=== PATIENT | male | born 1960 | race African-American/Black ===

== ENCOUNTER 2020-04-01 09:38 | Inpatient (IN) | payer MEDICAID ==
[~2020-04-01] VITALS: Ht 180.3 cm; Wt 86.6 kg
[2020-04-01] MEDS ORDERED: SODIUM CHLORIDE 0.9% 1,000 ML IV ONE (10:03)
[2020-04-01 10:26] LABS: BASOPHILS % 1.1 % (0.0-2.0); HEMATOCRIT. 42.4 % (42.0-52.0); HEMOGLOBIN. 14.7 g/dL (14.0-18.0); LYMPHOCYTES % 30.2 % (20.0-50.0); MEAN CORPUSCULAR HEMOGLOBIN 31.3 pg (28.0-32.0); MEAN CORPUSCULAR VOLUME 90.5 fL (80.0-94.0); MEAN PLATELET VOLUME 6.9 fl (7.4-10.4); MONOCYTES % 9.3 % (2.0-8.0); NEUTROPHILS % 50.4 % (40.0-76.0); PLATELET 263 x1000/uL (130-400); RED BLOOD CELL COUNT 4.69 mill/uL (4.7-6.1); RED CELL DISTRIBUTION WIDTH 13.6 % (11.6-14.6)
[2020-04-01 10:34] LABS: CHLORIDE 104 mEq/L (98-107)
[2020-04-01] MEDS ORDERED: AZITHROMYCIN 500 MG in DEXT 5% WATER 250 ML IV SCH (11:00)
[2020-04-01] MEDS ORDERED: ACETAMINOPHEN 325MG TABLET PO PRN (14:30)
[2020-04-01] MEDS ORDERED: BENZONATATE 100MG CAPSULE PO PRN (14:30)
[2020-04-01] MEDS ORDERED: LEVOFLOXACIN 500MG PREMIX 100 ML IV NR (15:15)
[2020-04-01 15:47] VITALS: BP 103/61
[2020-04-01 15:50] VITALS: BP 103/61
[2020-04-01 17:02] LABS: *AMPHETAMINES SCREEN URINE NEGATIVE (NEGATIVE); *BARBITURATES SCREEN URINE NEGATIVE (NEGATIVE)
[2020-04-01 17:03] LABS: *BENZODIAZEPINES SCREEN URINE NEGATIVE (NEGATIVE); *COCAINE SCREEN URINE NEGATIVE (NEGATIVE); METHADONE URINE SCREEN NEGATIVE (NEGATIVE); OPIATES URINE SCREEN NEGATIVE (NEGATIVE); PHENCYCLIDINE URINE SCREEN NEGATIVE (NEGATIVE)
[2020-04-01 17:04] LABS: CANNABINOID URINE SCREEN NEGATIVE (NEGATIVE)
[2020-04-01 20:00] VITALS: BP 107/70
[2020-04-01] MEDS: ENOXAPARIN 40MG/0.4ML SYR SUBCUT SCH (20:55)
[2020-04-01] MEDS: CEFTRIAXONE 1 G PREMIX 50 ML IV SCH (22:04)
[2020-04-02] VITALS: BP 125/65
[2020-04-02] MEDS: MORPHINE SULFATE 2 MG/ML CPJ (NOT FOR IM USE) IV PRN ×2 (00:18→12:32)
[2020-04-02 06:54] VITALS: BP 109/45
[2020-04-02 08:00] VITALS: BP 105/49
[2020-04-02] MEDS: AZITHROMYCIN 250 MG TABLET PO SCH (08:49)
[2020-04-02] MEDS ORDERED: AZITHROMYCIN 500 MG TABLET PO NR (09:00)
[2020-04-02] MEDS ORDERED: LEVOFLOXACIN 500MG PREMIX 100 ML IV SCH (09:00)
[2020-04-02 12:00] VITALS: BP 97/56
[2020-04-02] MEDS: ALBUTEROL 6.7GM HFA INHALER ORI SCH ×2 (12:00→18:00)
[2020-04-02] MEDS: FLUTICASONE FUROATE 100 1 INH/CAP ORI SCH ×2 (13:39→20:22)
[2020-04-02 16:00] VITALS: BP 105/62
[2020-04-02 20:00] VITALS: BP 95/54
[2020-04-02] MEDS: CEFTRIAXONE 1 G PREMIX 50 ML IV SCH (20:22)
[2020-04-02] MEDS: ENOXAPARIN 40MG/0.4ML SYR SUBCUT SCH (20:22)
[2020-04-03] VITALS (7 sets, daily range): BP systolic 92–109; BP diastolic 54–65
[2020-04-03] MEDS: ALBUTEROL 6.7GM HFA INHALER ORI SCH ×2 (00:01→03:15)
[2020-04-03] MEDS: AZITHROMYCIN 250 MG TABLET PO SCH (08:29)
[2020-04-03] MEDS: MORPHINE SULFATE 2 MG/ML CPJ (NOT FOR IM USE) IV PRN (08:36)
[2020-04-03] MEDS ORDERED: LEVO750T21 MT (10:31)
[2020-04-03] MEDS ORDERED: ALBU18HF2 IH (10:31)
[2020-04-03] MEDS ORDERED: GUAIFENESIN 600MG ER TABLET PO SCH (11:00)
[2020-04-03] MEDS ORDERED: IPRATROPIUM/ALBUTEROL 0.5-3(2.5)MG/3ML NEB HHN SCH (12:00)
[2020-04-03] MEDS: BENZONATATE 100MG CAPSULE PO SCH ×2 (15:07→21:01)
[2020-04-03] MEDS: METHYLPREDNISOLONE SOD SUCC 40 MG/ML VIAL IV SCH (17:36)
[2020-04-03] MEDS: ENOXAPARIN 40MG/0.4ML SYR SUBCUT SCH (20:42)
[2020-04-03] MEDS: CEFTRIAXONE 1 G PREMIX 50 ML IV SCH (20:42)
[2020-04-03] MEDS ORDERED: IPRATROPIUM/ALBUTEROL 0.5-3(2.5)MG/3ML NEB HHN PRN (20:45)
[2020-04-03] MEDS: IPRATROPIUM/ALBUTEROL 0.5-3(2.5)MG/3ML NEB HHN SCH (21:05)
[2020-04-04] VITALS: BP 100/52
[2020-04-04] MEDS: IPRATROPIUM/ALBUTEROL 0.5-3(2.5)MG/3ML NEB HHN SCH ×6 (00:47→20:05)
[2020-04-04 04:00] VITALS: BP 108/57
[2020-04-04] MEDS: BENZONATATE 100MG CAPSULE PO SCH (05:27)
[2020-04-04 08:00] VITALS: BP 106/59
[2020-04-04] MEDS: AZITHROMYCIN 250 MG TABLET PO SCH (08:35)
[2020-04-04] MEDS: FLUTICASONE FUROATE 100 1 INH/CAP ORI SCH ×2 (08:36→21:56)
[2020-04-04] MEDS: METHYLPREDNISOLONE SOD SUCC 40 MG/ML VIAL IV SCH ×2 (09:38→17:57)
[2020-04-04 12:00] VITALS: BP 102/61
[2020-04-04 13:14] LABS: BG BASE EXCESS 2.8 mmol/L (-2.0-2.0); BG CARBOXYHEMOGLOBIN 0.6 % (0.5-1.5); BG DEOXYHEMOGLOBIN 7.2 % (0.0-5.0); BG FRACTION INSPIRED OXYGEN 21; BG HCO3 ACT 28.5 mmol/L (22.0-26.0); BG METHEMOGLOBIN 0.2 % (0.0-1.5); BG OXYGEN SATURATION 92.7 % (92.0-98.5); BG PCO2 48.1 mmHg (35.0-45.0); BG PH 7.391 (7.350-7.450); BG PO2 62.8 mmHg (75.0-100.0); BG SAMPLE SITE RIGHT BRACHIAL; BG VENT MODE ROOM AIR
[2020-04-04 16:00] VITALS: BP 110/73
[2020-04-04] MEDS: GUAIFENESIN-DM 200MG-20MG/10ML UDC PO SCH (21:53)
[2020-04-04] MEDS: CEFTRIAXONE 1,000 MG in DEXTROSE 5% WATER 50 ML IV SCH (21:55)
[2020-04-04] MEDS: ENOXAPARIN 40MG/0.4ML SYR SUBCUT SCH (21:55)
[2020-04-05] MEDS: IPRATROPIUM/ALBUTEROL 0.5-3(2.5)MG/3ML NEB HHN SCH ×5 (00:22→21:18)
[2020-04-05 08:00] VITALS: BP 118/83
[2020-04-05] MEDS: AZITHROMYCIN 250 MG TABLET PO SCH (09:18)
[2020-04-05] MEDS: FLUTICASONE FUROATE 100 1 INH/CAP ORI SCH ×2 (09:19→21:23)
[2020-04-05] MEDS: METHYLPREDNISOLONE SOD SUCC 40 MG/ML VIAL IV SCH (09:19)
[2020-04-05] MEDS: MORPHINE SULFATE 2 MG/ML CPJ (NOT FOR IM USE) IV PRN (09:52)
[2020-04-05 12:00] VITALS: BP 133/61
[2020-04-05] MEDS: BENZONATATE 100MG CAPSULE PO PRN ×2 (12:22→20:48)
[2020-04-05 16:00] VITALS: BP 116/82
[2020-04-05] MEDS: THROAT LOZENGES-BENZOCAINE/MENTH/CETYLPYRD CL LOZENGES MM PRN ×2 (17:26→22:26)
[2020-04-05 20:00] VITALS: BP 105/60
[2020-04-05] MEDS: CEFTRIAXONE 1,000 MG in DEXTROSE 5% WATER 50 ML IV SCH (20:43)
[2020-04-05] MEDS: GUAIFENESIN-DM 200MG-20MG/10ML UDC PO SCH (20:45)
[2020-04-05] MEDS: ENOXAPARIN 40MG/0.4ML SYR SUBCUT SCH (20:48)
[2020-04-06] VITALS: BP 114/64
[2020-04-06] MEDS: IPRATROPIUM/ALBUTEROL 0.5-3(2.5)MG/3ML NEB HHN SCH ×4 (00:37→12:51)
[2020-04-06 04:00] VITALS: BP 98/52
[2020-04-06] MEDS: THROAT LOZENGES-BENZOCAINE/MENTH/CETYLPYRD CL LOZENGES MM PRN (05:01)
[2020-04-06 08:00] VITALS: BP 93/52
[2020-04-06] MEDS ORDERED: METHYLPREDNISOLONE SOD SUCC 40 MG/ML VIAL IV SCH (09:00)
[2020-04-06] MEDS: FLUTICASONE FUROATE 100 1 INH/CAP ORI SCH (09:49)
[2020-04-06 12:00] VITALS: BP 100/56
[2020-04-06] MEDS ORDERED: GUAI600T26 MT (12:06)
[2020-04-06] MEDS ORDERED: P20 MT (12:06)
[2020-04-06] MEDS ORDERED: BENZ-16 MT (12:06)
[2020-04-06 13:10] VITALS: BP 100/56
[2020-04-06] MEDS ORDERED: IPRATROPIUM/ALBUTEROL 0.5-3(2.5)MG/3ML NEB HHN SCH (18:00)
[2020-04-07] MEDS ORDERED: PREDNISONE 20MG TABLET PO SCH (09:00)
== END 2020-04-06 18:30 | disposition home or self-care (01) | DRG 720 ==
LOC: ER 09:53 → EDBEDREQ 13:17 → ENRESERV 14:35 → 7EST 15:47 → 5WST 04-03 05:00
PROVIDERS: ADMIT Internal Medicine; ATTEND Internal Medicine
DX: A41.9 Sepsis, unspecified organism (principal); J96.00 Acute respiratory failure, unspecified whether with hypoxia or hypercapnia; J18.0 Bronchopneumonia, unspecified organism; E44.1 Mild protein-calorie malnutrition; J44.0 Chronic obstructive pulmonary disease with (acute) lower respiratory infection; D72.1 Eosinophilia; Z20.828 Contact with and (suspected) exposure to other viral communicable diseases; J44.1 Chronic obstructive pulmonary disease with (acute) exacerbation; Z87.891 Personal history of nicotine dependence; Z68.26 Body mass index [BMI] 26.0-26.9, adult; Z88.0 Allergy status to penicillin; Z79.2 Long term (current) use of antibiotics; Z79.899 Other long term (current) drug therapy
CPT/HCPCS: 36415; 36600; 71045; 80053; 80305; 82375; 82728; 82805; 83615; 83880; 84484; 85025; 85379; 87635; 87804; 93005; 99285; J0456; J0696; J1650; J1956; J2270; J2920; J7030; J7060

== ENCOUNTER 2020-04-19 15:12 | Inpatient (IN) | payer MEDICAID ==
[~2020-04-19] VITALS: Ht 172.7 cm; Wt 68.9 kg
[~2020-04-19 15:12] MED LIST: ALBU18HF2 IH; BENZ-16 MT; GUAI600T26 MT; LEVO750T21 MT; P20 MT
[2020-04-19] MEDS ORDERED: ALBUTEROL (0.083%) 2.5MG/3ML NEB HHN STA (15:53)
[2020-04-19] MEDS ORDERED: METHYLPREDNISOLONE SOD SUCC 125 MG/2 ML VIAL IV STA (15:53)
[2020-04-19] MEDS ORDERED: IPRATROPIUM BROMIDE (0.02%) 0.5MG/2.5ML NEB HHN STA (15:53)
[2020-04-19 16:06] LABS: BASOPHILS % 0.4 % (0.0-2.0); CHLORIDE 105 mEq/L (98-107); EOSINOPHILS % 9.5 % (0.0-5.0); HEMATOCRIT. 41.8 % (42.0-52.0); HEMOGLOBIN. 14.6 g/dL (14.0-18.0); LYMPHOCYTES % 51.7 % (20.0-50.0); MEAN CORPUSCULAR HEMOGLOBIN 31.8 pg (28.0-32.0); MEAN CORPUSCULAR VOLUME 91.1 fL (80.0-94.0); MEAN PLATELET VOLUME 7.1 fl (7.4-10.4); MONOCYTES % 10.2 % (2.0-8.0); NEUTROPHILS % 28.2 % (40.0-76.0); PLATELET 303 x1000/uL (130-400); RED BLOOD CELL COUNT 4.59 mill/uL (4.7-6.1); RED CELL DISTRIBUTION WIDTH 13.8 % (11.6-14.6)
[2020-04-19] MEDS ORDERED: ONDANSETRON HCL 4MG/2ML INJ IV STA ×2 (16:40→17:17)
[2020-04-19] MEDS ORDERED: MORPHINE SULFATE 4 MG/ML CPJ (NOT FOR IM USE) IV STA ×2 (16:40→17:17)
[2020-04-19] MEDS ORDERED: LORAZEPAM 0.5MG TABLET PO ONE (16:45)
[2020-04-19] MEDS ORDERED: MIDAZOLAM HCL 2 MG/2 ML VIAL IV ONE (17:00)
[2020-04-19] MEDS ORDERED: FENTANYL CITRATE/PF 50MCG/ML 2ML VIAL IV ONE (19:45)
[2020-04-19] MEDS ORDERED: ONDANSETRON HCL 4MG/2ML INJ IV PRN (20:45)
[2020-04-19] MEDS ORDERED: ACETAMINOPHEN 325MG TABLET PO PRN (20:45)
[2020-04-19] MEDS ORDERED: LEVOFLOXACIN 750MG PREMIX 150 ML IV SCH (22:00)
[2020-04-19] MEDS: HYDROCODONE/ACETAMINOPHEN 5/325MG TABLET PO PRN (23:51)
[2020-04-20] VITALS (13 sets, daily range): BP systolic 109–136; BP diastolic 52–83
[2020-04-20] MEDS ORDERED: LEVOFLOXACIN 750MG PREMIX 150 ML IV SCH
[2020-04-20] MEDS: IPRATROPIUM/ALBUTEROL 0.5-3(2.5)MG/3ML NEB HHN SCH ×4 (02:14→20:37)
[2020-04-20] MEDS: BENZONATATE 100MG CAPSULE PO PRN (05:34)
[2020-04-20] MEDS: HYDROCODONE/ACETAMINOPHEN 5/325MG TABLET PO PRN ×3 (06:06→20:35)
[2020-04-20] MEDS: THROAT LOZENGES-BENZOCAINE/MENTH/CETYLPYRD CL LOZENGES MM PRN ×3 (09:11→20:13)
[2020-04-20 10:15] LABS: BG BASE EXCESS 0.9 mmol/L (-2.0-2.0); BG CARBOXYHEMOGLOBIN 0.7 % (0.5-1.5); BG DEOXYHEMOGLOBIN 6.2 % (0.0-5.0); BG FRACTION INSPIRED OXYGEN 28; BG HCO3 ACT 27.4 mmol/L (22.0-26.0); BG METHEMOGLOBIN 0.3 % (0.0-1.5); BG OXYGEN SATURATION 93.7 % (92.0-98.5); BG OXYHEMOGLOBIN 92.8 % (94.0-97.0); BG PCO2 51.1 mmHg (35.0-45.0); BG PH 7.347 (7.350-7.450); BG PO2 70.7 mmHg (75.0-100.0); BG SAMPLE SITE RIGHT BRACHIAL; BG TOTAL HEMOGLOBIN 14.5 g/dL (12.0-18.0); BG VENT MODE NASAL CANNULA
[2020-04-20] MEDS: METHYLPREDNISOLONE SOD SUCC 40 MG/ML VIAL IV SCH ×2 (13:49→23:02)
[2020-04-21] VITALS (12 sets, daily range): BP systolic 100–149; BP diastolic 60–95
[2020-04-21] MEDS: THROAT LOZENGES-BENZOCAINE/MENTH/CETYLPYRD CL LOZENGES MM PRN ×2 (00:17→14:16)
[2020-04-21] MEDS: BENZONATATE 100MG CAPSULE PO PRN ×2 (00:17→14:37)
[2020-04-21] MEDS: HYDROCODONE/ACETAMINOPHEN 5/325MG TABLET PO PRN ×3 (00:46→22:44)
[2020-04-21] MEDS: LEVOFLOXACIN 750MG PREMIX 150 ML IV SCH (01:00)
[2020-04-21] MEDS: ZOLPIDEM TARTRATE 5MG TABLET PO PRN ×2 (01:03→23:55)
[2020-04-21] MEDS: IPRATROPIUM/ALBUTEROL 0.5-3(2.5)MG/3ML NEB HHN SCH ×3 (02:08→22:00)
[2020-04-21] MEDS: METHYLPREDNISOLONE SOD SUCC 40 MG/ML VIAL IV SCH ×3 (06:13→21:52)
[2020-04-21 15:24] LABS: CHLORIDE 98 mEq/L (98-107)
[2020-04-21 15:28] LABS: BASOPHILS % 0.1 % (0.0-2.0); HEMATOCRIT. 40.7 % (42.0-52.0); HEMOGLOBIN. 13.7 g/dL (14.0-18.0); LYMPHOCYTES % 8.8 % (20.0-50.0); MEAN CORPUSCULAR HEMOGLOBIN 31.1 pg (28.0-32.0); MEAN CORPUSCULAR VOLUME 92.6 fL (80.0-94.0); MEAN PLATELET VOLUME 7.1 fl (7.4-10.4); MONOCYTES % 4.5 % (2.0-8.0); NEUTROPHILS % 86.6 % (40.0-76.0); PLATELET 276 x1000/uL (130-400); RED CELL DISTRIBUTION WIDTH 13.6 % (11.6-14.6)
[2020-04-22] VITALS (14 sets, daily range): BP systolic 111–167; BP diastolic 59–117
[2020-04-22] MEDS: LEVOFLOXACIN 750MG PREMIX 150 ML IV SCH (01:12)
[2020-04-22] MEDS: IPRATROPIUM/ALBUTEROL 0.5-3(2.5)MG/3ML NEB HHN SCH ×3 (04:59→20:10)
[2020-04-22] MEDS: METHYLPREDNISOLONE SOD SUCC 40 MG/ML VIAL IV SCH ×3 (05:42→21:56)
[2020-04-22] MEDS: HYDROCODONE/ACETAMINOPHEN 5/325MG TABLET PO PRN (05:43)
[2020-04-22] MEDS: THROAT LOZENGES-BENZOCAINE/MENTH/CETYLPYRD CL LOZENGES MM PRN ×2 (07:55→14:21)
[2020-04-22] MEDS: BENZONATATE 100MG CAPSULE PO PRN (14:21)
[2020-04-22] MEDS: KETOROLAC 30MG/ML VIAL IV PRN (16:47)
[2020-04-23] VITALS (12 sets, daily range): BP systolic 105–142; BP diastolic 67–89
[2020-04-23] MEDS: THROAT LOZENGES-BENZOCAINE/MENTH/CETYLPYRD CL LOZENGES MM PRN ×2 (00:04→06:25)
[2020-04-23] MEDS: IPRATROPIUM/ALBUTEROL 0.5-3(2.5)MG/3ML NEB HHN SCH ×4 (01:00→14:34)
[2020-04-23] MEDS: LEVOFLOXACIN 750MG PREMIX 150 ML IV SCH (01:31)
[2020-04-23] MEDS: KETOROLAC 30MG/ML VIAL IV PRN (02:53)
[2020-04-23] MEDS: METHYLPREDNISOLONE SOD SUCC 40 MG/ML VIAL IV SCH (06:25)
[2020-04-23] MEDS: GUAIFENESIN-DM 200MG-20MG/10ML UDC PO SCH ×3 (12:23→23:42)
[2020-04-23] MEDS: HYDROCODONE/ACETAMINOPHEN 5/325MG TABLET PO PRN (18:47)
[2020-04-24] VITALS (38 sets, daily range): BP systolic 65–136; BP diastolic 42–106
[2020-04-24] MEDS: LEVOFLOXACIN 750MG PREMIX 150 ML IV SCH (01:03)
[2020-04-24] MEDS: GUAIFENESIN-DM 200MG-20MG/10ML UDC PO SCH ×4 (05:44→23:13)
[2020-04-24 06:19] LABS: INR 1.1; PROTHROMBIN TIME 11.6 sec (9.6-11.0)
[2020-04-24 06:31] LABS: BASOPHILS % 0.1 % (0.0-2.0); EOSINOPHILS % 0.2 % (0.0-5.0); HEMOGLOBIN. 13.5 g/dL (14.0-18.0); LYMPHOCYTES % 32.8 % (20.0-50.0); MEAN CORPUSCULAR HEMOGLOBIN 30.8 pg (28.0-32.0); MEAN CORPUSCULAR VOLUME 91.5 fL (80.0-94.0); MEAN PLATELET VOLUME 6.7 fl (7.4-10.4); MONOCYTES % 9.2 % (2.0-8.0); NEUTROPHILS % 57.7 % (40.0-76.0); PLATELET 257 x1000/uL (130-400); RED BLOOD CELL COUNT 4.37 mill/uL (4.7-6.1); RED CELL DISTRIBUTION WIDTH 13.6 % (11.6-14.6)
[2020-04-24 06:35] LABS: CHLORIDE 99 mEq/L (98-107)
[2020-04-24] MEDS: IPRATROPIUM/ALBUTEROL 0.5-3(2.5)MG/3ML NEB HHN SCH ×3 (07:48→20:18)
[2020-04-24] MEDS: METHYLPREDNISOLONE SOD SUCC 40 MG/ML VIAL IV SCH (08:41)
[2020-04-24] MEDS ORDERED: TALC 3 GM VIAL IX SCH ×2 (09:15→09:30)
[2020-04-24] MEDS ORDERED: LIDOCAINE HCL 2% JELLY 5ML ONE (09:24)
[2020-04-24] MEDS ORDERED: TETRACAINE/BENZOCAINE/BUTAMBEN 20 GM SPRAY MM ONE (09:24)
[2020-04-24] MEDS ORDERED: BUPIVACAINE/EPINEPH/PF 0.25%/0.0005 10ML ONE (09:25)
[2020-04-24] MEDS ORDERED: SKIN ADHESIVE 0.7 GM EA TOP ONE (09:25)
[2020-04-24] MEDS ORDERED: LIDOCAINE HCL/EPINEPHRINE 1%-EPI 1:100,000 20 ML VIAL ONE (09:26)
[2020-04-24] MEDS ORDERED: BACITRACIN 15GM TUBE TOP ONE (09:26)
[2020-04-24] MEDS ORDERED: BACITRACIN 50,000 UNITS/VIAL ONE (09:26)
[2020-04-24] MEDS ORDERED: NORMAL SALINE 0.9% 10 ML SYR ONE (09:26)
[2020-04-24] MEDS ORDERED: MIDAZOLAM HCL 2 MG/2 ML VIAL ONE (10:28)
[2020-04-24] MEDS ORDERED: PROPOFOL 200MG/20ML VIAL IV ONE (10:28)
[2020-04-24] MEDS ORDERED: FENTANYL CITRATE/PF 50MCG/ML 2ML VIAL ONE (10:28)
[2020-04-24] MEDS ORDERED: ROCURONIUM BROMIDE 10MG/ML VIAL 5ML IV ONE ×2 (10:31→13:35)
[2020-04-24] MEDS ORDERED: NEOSTIGMINE METHYLSULFATE 1MG/ML 10 ML VIAL ONE (13:36)
[2020-04-24] MEDS ORDERED: GLYCOPYRROLATE 0.2 MG/ML 2ML VIAL ONE (13:36)
[2020-04-24] MEDS ORDERED: PHENYLEPHRINE HCL 10 MG/ML 1ML (IV VIAL) IV ONE (13:36)
[2020-04-24] MEDS ORDERED: ONDANSETRON HCL 4MG/2ML INJ ONE (13:39)
[2020-04-24] MEDS ORDERED: KETOROLAC 30MG/ML VIAL ONE (13:39)
[2020-04-24] MEDS ORDERED: METOCLOPRAMIDE HCL 10MG/2ML VIAL ONE (13:39)
[2020-04-24] MEDS ORDERED: SODIUM CHLORIDE 0.9% 500 ML IV PRN (13:48)
[2020-04-24] MEDS ORDERED: OXYCODONE HCL/ACETAMINOPHEN 5/325MG TABLET PO PRN (14:00)
[2020-04-24] MEDS ORDERED: ACETAMINOPHEN 325MG TABLET PO PRN (14:00)
[2020-04-24] MEDS ORDERED: ONDANSETRON HCL 4MG/2ML INJ IV PRN (14:00)
[2020-04-24 14:18] LABS: BG BASE EXCESS 4.8 mmol/L (-2.0-2.0); BG DEOXYHEMOGLOBIN 0.9 % (0.0-5.0); BG FRACTION INSPIRED OXYGEN 60; BG HCO3 ACT 36.7 mmol/L (22.0-26.0); BG METHEMOGLOBIN 0.5 % (0.0-1.5); BG OXYGEN SATURATION 99.1 % (92.0-98.5); BG OXYHEMOGLOBIN 97.6 % (94.0-97.0); BG PCO2 96.9 mmHg (35.0-45.0); BG PH 7.196 (7.350-7.450); BG PO2 197.4 mmHg (75.0-100.0); BG SAMPLE SITE RIGHT BRACHIAL; BG TOTAL HEMOGLOBIN 14.7 g/dL (12.0-18.0); BG VENT MODE MASK - SIMPLE
[2020-04-24] MEDS: DEXT 5%/0.45% NACL 1000ML 1,000 ML IV SCH (14:39)
[2020-04-24] MEDS: MAGNESIUM HYDROXIDE 400MG/5ML 30ML UDC PO SCH ×3 (15:02→23:11)
[2020-04-24 15:15] LABS: BG BASE EXCESS 5.8 mmol/L (-2.0-2.0); BG BILEVEL POS AIRWAY PRESSURE 15/5; BG CARBOXYHEMOGLOBIN 1.3 % (0.5-1.5); BG DEOXYHEMOGLOBIN 0.4 % (0.0-5.0); BG FRACTION INSPIRED OXYGEN 40; BG HCO3 ACT 36.1 mmol/L (22.0-26.0); BG METHEMOGLOBIN 0.4 % (0.0-1.5); BG OXYGEN SATURATION 99.6 % (92.0-98.5); BG OXYHEMOGLOBIN 97.9 % (94.0-97.0); BG PCO2 82.5 mmHg (35.0-45.0); BG PH 7.259 (7.350-7.450); BG PO2 232.8 mmHg (75.0-100.0); BG SAMPLE SITE RIGHT RADIAL; BG TOTAL HEMOGLOBIN 14.5 g/dL (12.0-18.0); BG VENT MODE MASK - BIPAP; BG VENT RATE 22 set
[2020-04-24] MEDS: KETOROLAC 30MG/ML VIAL IV PRN (15:52)
[2020-04-24] MEDS: DOCUSATE SODIUM 100MG CAPSULE PO SCH (16:04)
[2020-04-24 17:37] LABS: BG BASE EXCESS 7.8 mmol/L (-2.0-2.0); BG BILEVEL POS AIRWAY PRESSURE 15/5; BG CARBOXYHEMOGLOBIN 1.2 % (0.5-1.5); BG DEOXYHEMOGLOBIN 3.6 % (0.0-5.0); BG FRACTION INSPIRED OXYGEN 30; BG HCO3 ACT 36.5 mmol/L (22.0-26.0); BG METHEMOGLOBIN 0.3 % (0.0-1.5); BG OXYGEN SATURATION 96.3 % (92.0-98.5); BG OXYHEMOGLOBIN 94.9 % (94.0-97.0); BG PCO2 70.1 mmHg (35.0-45.0); BG PH 7.334 (7.350-7.450); BG SAMPLE SITE RIGHT BRACHIAL; BG TOTAL HEMOGLOBIN 14.3 g/dL (12.0-18.0); BG VENT MODE MASK - BIPAP; BG VENT RATE 22 set
[2020-04-24] MEDS: OXYCODONE HCL/ACETAMINOPHEN 5/325MG TABLET PO PRN ×2 (18:49→23:24)
[2020-04-24 20:41] LABS: BG BASE EXCESS 7.4 mmol/L (-2.0-2.0); BG BILEVEL POS AIRWAY PRESSURE 15/5; BG CARBOXYHEMOGLOBIN 1.3 % (0.5-1.5); BG FRACTION INSPIRED OXYGEN 30; BG HCO3 ACT 35.7 mmol/L (22.0-26.0); BG METHEMOGLOBIN 0.3 % (0.0-1.5); BG OXYHEMOGLOBIN 95.4 % (94.0-97.0); BG PH 7.338 (7.350-7.450); BG PO2 92.9 mmHg (75.0-100.0); BG SAMPLE SITE RIGHT BRACHIAL; BG VENT MODE MASK - BIPAP; BG VENT RATE 22 set
[2020-04-24] MEDS: MORPHINE SULFATE 2 MG/ML CPJ (NOT FOR IM USE) IV PRN (21:31)
[2020-04-24] MEDS: ZOLPIDEM TARTRATE 5MG TABLET PO PRN (23:11)
[2020-04-25] VITALS (55 sets, daily range): BP systolic 83–146; BP diastolic 51–88
[2020-04-25] MEDS: IPRATROPIUM/ALBUTEROL 0.5-3(2.5)MG/3ML NEB HHN SCH ×6 (00:31→21:36)
[2020-04-25 00:59] LABS: BG BASE EXCESS 9.7 mmol/L (-2.0-2.0); BG BILEVEL POS AIRWAY PRESSURE 15/5; BG CARBOXYHEMOGLOBIN 1.5 % (0.5-1.5); BG DEOXYHEMOGLOBIN 2.9 % (0.0-5.0); BG FRACTION INSPIRED OXYGEN 30; BG HCO3 ACT 37.7 mmol/L (22.0-26.0); BG METHEMOGLOBIN 0.2 % (0.0-1.5); BG OXYHEMOGLOBIN 95.4 % (94.0-97.0); BG PCO2 66.9 mmHg (35.0-45.0); BG PH 7.369 (7.350-7.450); BG PO2 88.7 mmHg (75.0-100.0); BG SAMPLE SITE RIGHT BRACHIAL; BG VENT MODE MASK - BIPAP; BG VENT RATE 22 set
[2020-04-25] MEDS: GUAIFENESIN-DM 200MG-20MG/10ML UDC PO SCH ×4 (05:10→23:27)
[2020-04-25] MEDS: MAGNESIUM HYDROXIDE 400MG/5ML 30ML UDC PO SCH ×6 (05:10→23:27)
[2020-04-25] MEDS: KETOROLAC 30MG/ML VIAL IV PRN (05:43)
[2020-04-25 05:50] LABS: BASOPHILS % 0.2 % (0.0-2.0); EOSINOPHILS % 1.2 % (0.0-5.0); HEMATOCRIT. 41.5 % (42.0-52.0); HEMOGLOBIN. 13.8 g/dL (14.0-18.0); LYMPHOCYTES % 26.5 % (20.0-50.0); MEAN CORPUSCULAR HEMOGLOBIN 30.8 pg (28.0-32.0); MEAN PLATELET VOLUME 6.7 fl (7.4-10.4); MONOCYTES % 8.8 % (2.0-8.0); NEUTROPHILS % 63.3 % (40.0-76.0); PLATELET 250 x1000/uL (130-400); RED BLOOD CELL COUNT 4.46 mill/uL (4.7-6.1); RED CELL DISTRIBUTION WIDTH 13.5 % (11.6-14.6)
[2020-04-25 06:09] LABS: CHLORIDE 96 mEq/L (98-107)
[2020-04-25] MEDS: DEXT 5%/0.45% NACL 1000ML 1,000 ML IV SCH ×2 (06:33→23:27)
[2020-04-25] MEDS: DOCUSATE SODIUM 100MG CAPSULE PO SCH ×2 (07:43→17:10)
[2020-04-25] MEDS: FAMOTIDINE 20MG/2ML VIAL IV SCH (08:11)
[2020-04-25] MEDS: METHYLPREDNISOLONE SOD SUCC 40 MG/ML VIAL IV SCH (08:11)
[2020-04-25 09:05] LABS: BG BASE EXCESS 6.8 mmol/L (-2.0-2.0); BG BILEVEL POS AIRWAY PRESSURE 15/5; BG DEOXYHEMOGLOBIN 1.3 % (0.0-5.0); BG FRACTION INSPIRED OXYGEN 30; BG HCO3 ACT 33.4 mmol/L (22.0-26.0); BG METHEMOGLOBIN 0.3 % (0.0-1.5); BG OXYGEN SATURATION 98.7 % (92.0-98.5); BG OXYHEMOGLOBIN 97.4 % (94.0-97.0); BG PCO2 56.3 mmHg (35.0-45.0); BG PH 7.391 (7.350-7.450); BG PO2 131.9 mmHg (75.0-100.0); BG SAMPLE SITE LEFT BRACHIAL; BG TOTAL HEMOGLOBIN 13.6 g/dL (12.0-18.0); BG VENT MODE MASK - BIPAP; BG VENT RATE 22 set
[2020-04-25] MEDS: OXYCODONE HCL/ACETAMINOPHEN 5/325MG TABLET PO PRN ×3 (13:09→23:44)
[2020-04-26] VITALS (38 sets, daily range): BP systolic 102–136; BP diastolic 62–87
[2020-04-26] MEDS: THROAT LOZENGES-BENZOCAINE/MENTH/CETYLPYRD CL LOZENGES MM PRN (00:53)
[2020-04-26] MEDS: IPRATROPIUM/ALBUTEROL 0.5-3(2.5)MG/3ML NEB HHN SCH ×6 (01:05→20:52)
[2020-04-26] MEDS: MAGNESIUM HYDROXIDE 400MG/5ML 30ML UDC PO SCH (03:19)
[2020-04-26] MEDS: GUAIFENESIN-DM 200MG-20MG/10ML UDC PO SCH ×4 (05:27→23:08)
[2020-04-26 05:39] LABS: BASOPHILS % 0.3 % (0.0-2.0); EOSINOPHILS % 2.1 % (0.0-5.0); HEMATOCRIT. 37.8 % (42.0-52.0); HEMOGLOBIN. 12.8 g/dL (14.0-18.0); LYMPHOCYTES % 19.7 % (20.0-50.0); MEAN CORPUSCULAR VOLUME 91.9 fL (80.0-94.0); MEAN PLATELET VOLUME 6.6 fl (7.4-10.4); MONOCYTES % 8.6 % (2.0-8.0); NEUTROPHILS % 69.3 % (40.0-76.0); PLATELET 232 x1000/uL (130-400); RED BLOOD CELL COUNT 4.11 mill/uL (4.7-6.1); RED CELL DISTRIBUTION WIDTH 13.5 % (11.6-14.6)
[2020-04-26 05:44] LABS: CHLORIDE 94 mEq/L (98-107)
[2020-04-26] MEDS: FAMOTIDINE 20MG/2ML VIAL IV SCH (08:15)
[2020-04-26] MEDS: PREDNISONE 20MG TABLET PO SCH (08:15)
[2020-04-26] MEDS: DOCUSATE SODIUM 100MG CAPSULE PO SCH ×2 (08:16→17:00)
[2020-04-26] MEDS: OXYCODONE HCL/ACETAMINOPHEN 5/325MG TABLET PO PRN ×2 (10:26→20:30)
[2020-04-26] MEDS: DEXT 5%/0.45% NACL 1000ML 1,000 ML IV SCH ×2 (15:48→21:33)
[2020-04-27] VITALS (12 sets, daily range): BP systolic 106–131; BP diastolic 61–81
[2020-04-27] MEDS: IPRATROPIUM/ALBUTEROL 0.5-3(2.5)MG/3ML NEB HHN SCH ×6 (00:43→20:50)
[2020-04-27] MEDS: MORPHINE SULFATE 2 MG/ML CPJ (NOT FOR IM USE) IV PRN (04:24)
[2020-04-27] MEDS: GUAIFENESIN-DM 200MG-20MG/10ML UDC PO SCH ×4 (05:41→23:35)
[2020-04-27] MEDS: DEXT 5%/0.45% NACL 1000ML 1,000 ML IV SCH ×2 (08:28→20:37)
[2020-04-27] MEDS: PREDNISONE 20MG TABLET PO SCH (09:11)
[2020-04-27] MEDS: FAMOTIDINE 20MG/2ML VIAL IV SCH (09:11)
[2020-04-27] MEDS: DOCUSATE SODIUM 100MG CAPSULE PO SCH ×2 (09:11→17:00)
[2020-04-27] MEDS: OXYCODONE HCL/ACETAMINOPHEN 5/325MG TABLET PO PRN ×2 (10:45→19:35)
[2020-04-27 10:47] LABS: HEMOGLOBIN 13.5 g/dL (14.0-18.0); MEAN CORPUSCULAR HEMOGLOBIN 31.4 pg (28.0-32.0); MEAN CORPUSCULAR VOLUME 92.7 fL (80.0-94.0); PLATELET 253 x1000/uL (130-400); RED BLOOD CELL COUNT 4.31 mill/uL (4.7-6.1); RED CELL DISTRIBUTION WIDTH 13.2 % (11.6-14.6)
[2020-04-27 12:02] LABS: CHLORIDE 90 mEq/L (98-107)
[2020-04-27] MEDS: FAMOTIDINE 20MG TABLET PO SCH (20:36)
[2020-04-28] VITALS (13 sets, daily range): BP systolic 100–134; BP diastolic 65–86
[2020-04-28] MEDS: THROAT LOZENGES-BENZOCAINE/MENTH/CETYLPYRD CL LOZENGES MM PRN ×2 (00:02→21:41)
[2020-04-28] MEDS: IPRATROPIUM/ALBUTEROL 0.5-3(2.5)MG/3ML NEB HHN SCH ×6 (00:46→21:05)
[2020-04-28] MEDS: DEXT 5%/0.45% NACL 1000ML 1,000 ML IV SCH ×2 (01:08→12:59)
[2020-04-28] MEDS: OXYCODONE HCL/ACETAMINOPHEN 5/325MG TABLET PO PRN ×4 (03:52→21:41)
[2020-04-28] MEDS: GUAIFENESIN-DM 200MG-20MG/10ML UDC PO SCH ×4 (05:43→23:31)
[2020-04-28 07:16] LABS: CHLORIDE 93 mEq/L (98-107)
[2020-04-28 07:23] LABS: BASOPHILS % 0.4 % (0.0-2.0); EOSINOPHILS % 3.9 % (0.0-5.0); HEMATOCRIT. 33.4 % (42.0-52.0); HEMOGLOBIN. 11.3 g/dL (14.0-18.0); MEAN CORPUSCULAR HEMOGLOBIN 30.8 pg (28.0-32.0); MEAN CORPUSCULAR VOLUME 91.5 fL (80.0-94.0); MEAN PLATELET VOLUME 7.2 fl (7.4-10.4); MONOCYTES % 10.5 % (2.0-8.0); NEUTROPHILS % 50.2 % (40.0-76.0); PLATELET 242 x1000/uL (130-400); RED BLOOD CELL COUNT 3.66 mill/uL (4.7-6.1); RED CELL DISTRIBUTION WIDTH 13.3 % (11.6-14.6)
[2020-04-28] MEDS: DOCUSATE SODIUM 100MG CAPSULE PO SCH ×2 (09:38→17:41)
[2020-04-28] MEDS: FAMOTIDINE 20MG TABLET PO SCH ×2 (09:39→21:32)
[2020-04-29] VITALS (13 sets, daily range): BP systolic 104–123; BP diastolic 59–96
[2020-04-29] MEDS: IPRATROPIUM/ALBUTEROL 0.5-3(2.5)MG/3ML NEB HHN SCH ×6 (01:04→21:47)
[2020-04-29] MEDS: OXYCODONE HCL/ACETAMINOPHEN 5/325MG TABLET PO PRN ×5 (04:11→23:05)
[2020-04-29] MEDS: DEXT 5%/0.45% NACL 1000ML 1,000 ML IV SCH ×2 (05:08→10:28)
[2020-04-29] MEDS: GUAIFENESIN-DM 200MG-20MG/10ML UDC PO SCH ×3 (05:08→17:09)
[2020-04-29] MEDS: DOCUSATE SODIUM 100MG CAPSULE PO SCH ×2 (08:25→17:09)
[2020-04-29] MEDS: FAMOTIDINE 20MG TABLET PO SCH ×2 (08:26→20:32)
[2020-04-29] MEDS: DIPHENHYDRAMINE 50MG/ML VIAL IV PRN (18:49)
[2020-04-30] VITALS (12 sets, daily range): BP systolic 100–131; BP diastolic 57–86
[2020-04-30] MEDS: GUAIFENESIN-DM 200MG-20MG/10ML UDC PO SCH ×5 (00:54→23:37)
[2020-04-30] MEDS: IPRATROPIUM/ALBUTEROL 0.5-3(2.5)MG/3ML NEB HHN SCH ×5 (01:06→21:51)
[2020-04-30] MEDS: OXYCODONE HCL/ACETAMINOPHEN 5/325MG TABLET PO PRN ×3 (05:53→18:38)
[2020-04-30] MEDS: FAMOTIDINE 20MG TABLET PO SCH ×2 (08:07→21:50)
[2020-04-30] MEDS: DOCUSATE SODIUM 100MG CAPSULE PO SCH ×2 (08:07→16:52)
[2020-04-30] MEDS ORDERED: IPRATROPIUM/ALBUTEROL 0.5-3(2.5)MG/3ML NEB HHN PRN (11:30)
[2020-04-30] MEDS: DIPHENHYDRAMINE 50MG/ML VIAL IV PRN (21:57)
[2020-05-01] VITALS (12 sets, daily range): BP systolic 101–126; BP diastolic 53–79
[2020-05-01] MEDS: IPRATROPIUM/ALBUTEROL 0.5-3(2.5)MG/3ML NEB HHN SCH ×4 (01:04→19:55)
[2020-05-01] MEDS: OXYCODONE HCL/ACETAMINOPHEN 5/325MG TABLET PO PRN ×3 (04:23→21:21)
[2020-05-01] MEDS: THROAT LOZENGES-BENZOCAINE/MENTH/CETYLPYRD CL LOZENGES MM PRN (04:29)
[2020-05-01] MEDS: GUAIFENESIN-DM 200MG-20MG/10ML UDC PO SCH ×4 (06:00→23:49)
[2020-05-01] MEDS: DOCUSATE SODIUM 100MG CAPSULE PO SCH ×2 (08:09→17:16)
[2020-05-01] MEDS: FAMOTIDINE 20MG TABLET PO SCH ×2 (08:09→21:20)
[2020-05-01] MEDS: DIPHENHYDRAMINE 50MG/ML VIAL IV PRN (18:27)
[2020-05-02] VITALS (12 sets, daily range): BP systolic 99–122; BP diastolic 48–74
[2020-05-02] MEDS: IPRATROPIUM/ALBUTEROL 0.5-3(2.5)MG/3ML NEB HHN SCH ×4 (01:35→20:32)
[2020-05-02] MEDS: GUAIFENESIN-DM 200MG-20MG/10ML UDC PO SCH ×4 (06:25→23:34)
[2020-05-02] MEDS: OXYCODONE HCL/ACETAMINOPHEN 5/325MG TABLET PO PRN ×4 (06:27→23:44)
[2020-05-02] MEDS: FAMOTIDINE 20MG TABLET PO SCH ×2 (08:39→20:06)
[2020-05-02] MEDS: DOCUSATE SODIUM 100MG CAPSULE PO SCH ×2 (08:39→18:36)
[2020-05-03] VITALS (12 sets, daily range): BP systolic 98–140; BP diastolic 55–83
[2020-05-03] MEDS: IPRATROPIUM/ALBUTEROL 0.5-3(2.5)MG/3ML NEB HHN SCH ×4 (01:49→21:24)
[2020-05-03] MEDS: OXYCODONE HCL/ACETAMINOPHEN 5/325MG TABLET PO PRN ×4 (05:01→22:10)
[2020-05-03] MEDS: DIPHENHYDRAMINE 50MG/ML VIAL IV PRN (05:36)
[2020-05-03] MEDS: GUAIFENESIN-DM 200MG-20MG/10ML UDC PO SCH ×3 (05:49→17:54)
[2020-05-03] MEDS: FAMOTIDINE 20MG TABLET PO SCH ×2 (09:30→20:52)
[2020-05-03] MEDS: DOCUSATE SODIUM 100MG CAPSULE PO SCH ×2 (09:30→17:54)
[2020-05-03] MEDS: BUDESONIDE 0.5MG/2ML NEB HHN SCH ×2 (14:11→21:24)
[2020-05-04] VITALS (13 sets, daily range): BP systolic 94–129; BP diastolic 46–84
[2020-05-04] MEDS: GUAIFENESIN-DM 200MG-20MG/10ML UDC PO SCH ×4 (00:09→16:59)
[2020-05-04] MEDS ORDERED: ZOLPIDEM TARTRATE 5MG TABLET PO PRN (00:30)
[2020-05-04] MEDS: IPRATROPIUM/ALBUTEROL 0.5-3(2.5)MG/3ML NEB HHN SCH ×4 (01:00→20:10)
[2020-05-04] MEDS: BUDESONIDE 0.5MG/2ML NEB HHN SCH ×2 (09:23→20:10)
[2020-05-04] MEDS: FAMOTIDINE 20MG TABLET PO SCH ×2 (09:36→20:14)
[2020-05-04] MEDS: DOCUSATE SODIUM 100MG CAPSULE PO SCH ×2 (09:36→16:57)
[2020-05-04] MEDS: OXYCODONE HCL/ACETAMINOPHEN 5/325MG TABLET PO PRN ×2 (09:37→20:26)
[2020-05-04] MEDS ORDERED: ALBU18HF2 IH (12:16)
[2020-05-04] MEDS ORDERED: BENZ-16 MT (12:16)
[2020-05-04] MEDS ORDERED: FLUT1DIS3 INH (12:16)
[2020-05-04] MEDS ORDERED: IPRA3AMP9 NEB (12:16)
[2020-05-05] VITALS (12 sets, daily range): BP systolic 100–141; BP diastolic 42–84
[2020-05-05] MEDS: GUAIFENESIN-DM 200MG-20MG/10ML UDC PO SCH ×4 (00:05→17:03)
[2020-05-05] MEDS: IPRATROPIUM/ALBUTEROL 0.5-3(2.5)MG/3ML NEB HHN SCH ×4 (01:21→20:47)
[2020-05-05] MEDS: OXYCODONE HCL/ACETAMINOPHEN 5/325MG TABLET PO PRN ×2 (05:16→15:33)
[2020-05-05] MEDS: FAMOTIDINE 20MG TABLET PO SCH ×2 (08:11→21:22)
[2020-05-05] MEDS: DOCUSATE SODIUM 100MG CAPSULE PO SCH ×2 (08:11→17:03)
[2020-05-05] MEDS: BUDESONIDE 0.5MG/2ML NEB HHN SCH ×2 (09:00→20:47)
[2020-05-05] MEDS: THROAT LOZENGES-BENZOCAINE/MENTH/CETYLPYRD CL LOZENGES MM PRN (10:44)
[2020-05-05] MEDS ORDERED: BENZONATATE 100MG CAPSULE PO PRN (16:00)
[2020-05-06] VITALS (8 sets, daily range): BP systolic 96–111; BP diastolic 51–73
[2020-05-06] MEDS: GUAIFENESIN-DM 200MG-20MG/10ML UDC PO SCH ×4 (00:21→17:07)
[2020-05-06] MEDS: IPRATROPIUM/ALBUTEROL 0.5-3(2.5)MG/3ML NEB HHN SCH ×3 (02:00→15:15)
[2020-05-06] MEDS: THROAT LOZENGES-BENZOCAINE/MENTH/CETYLPYRD CL LOZENGES MM PRN (05:34)
[2020-05-06] MEDS: OXYCODONE HCL/ACETAMINOPHEN 5/325MG TABLET PO PRN ×2 (05:37→18:22)
[2020-05-06] MEDS: FAMOTIDINE 20MG TABLET PO SCH (08:25)
[2020-05-06] MEDS: DOCUSATE SODIUM 100MG CAPSULE PO SCH ×2 (08:25→17:07)
[2020-05-06] MEDS: BUDESONIDE 0.5MG/2ML NEB HHN SCH (10:45)
== END 2020-05-06 19:10 | DRG 121 ==
LOC: ER 15:12 → 3WST 18:51 → ENRESERV 20:27 → CANRESERV 20:27 → ENRESERV 21:21 → MICUNO 04-21 13:43 → 3WST 04-21 14:06 → CVICU 04-24 10:20 → 3WST 04-26 18:22
PROVIDERS: ADMIT Internal Medicine; ATTEND Internal Medicine
PROC: 03H733Z Insertion of Infusion Device into Right Brachial Artery, Percutaneous Approach (ICD-10-PCS; 2020-04-24)
PROC: 0W9B00Z Drainage of Left Pleural Cavity with Drainage Device, Open Approach (ICD-10-PCS; principal; 2020-04-27)
PROC: 0BBG4ZZ Excision of Left Upper Lung Lobe, Percutaneous Endoscopic Approach (ICD-10-PCS; 2020-04-27)
PROC: 0BJ08ZZ Inspection of Tracheobronchial Tree, Via Natural or Artificial Opening Endoscopic (ICD-10-PCS; 2020-04-27)
PROC: 3E0L3GC Introduction of Other Therapeutic Substance into Pleural Cavity, Percutaneous Approach (ICD-10-PCS; 2020-04-27)
DX: J93.0 Spontaneous tension pneumothorax (principal); J96.20 Acute and chronic respiratory failure, unspecified whether with hypoxia or hypercapnia; J18.9 Pneumonia, unspecified organism; E87.4 Mixed disorder of acid-base balance; D72.1 Eosinophilia; Z99.81 Dependence on supplemental oxygen; E44.1 Mild protein-calorie malnutrition; J43.9 Emphysema, unspecified; Z20.828 Contact with and (suspected) exposure to other viral communicable diseases; F17.200 Nicotine dependence, unspecified, uncomplicated; Z68.23 Body mass index [BMI] 23.0-23.9, adult; Z88.0 Allergy status to penicillin; Z79.2 Long term (current) use of antibiotics; Z79.899 Other long term (current) drug therapy
CPT/HCPCS: 36415; 36600; 71045; 71250; 73706; 80048; 80053; 82375; 82805; 83735; 83880; 84484; 85025; 85027; 88307; 88312; 93005; 94640; 94660; 97110; 97116; 97162; 97166; 97530; 97535; 99291; J0171; J1200; J1885; J1956; J2250; J2270; J2370; J2405; J2704; J2710; J2765; J2920; J2930; J3010; J3490; J7512; J7626; U0003-CS